=== PATIENT | female | born 1945 | race Caucasian/White ===

== ENCOUNTER → 2018-11-18 | Outpatient (CLI) | payer OTHER ==
[~2018-11-18] MED LIST: Flomax0.4 MG PO; HYDCHL12.5; IBUP400 PO; Keflex500 MG PO; LISI20 PO; MECL25 PO; METF500 PO; METO25ER PO; Norco 5-325 Ta1 EACH PO; OXYACE5T PO; SPIR25; TRAN4; VENL75; Zofran Odt4 MG SL; [UNRECOGNIZED DRUG - CODE]
== END | disposition home or self-care (01) ==
LOC: LAB SHORT 13:40 → PLD 13:40
DX: D22.62 Melanocytic nevi of left upper limb, including shoulder (principal); D03.72 Melanoma in situ of left lower limb, including hip
CPT/HCPCS: 88305

== ENCOUNTER 2018-11-25 06:52 | Day surgery (SDC) | payer OTHER ==
[~2018-11-25] VITALS: Ht 160 cm; Wt 75.8 kg
--- NOTE | 2018-11-25 08:30 | NUR ---
11/25/18 0830 Abeba Linn INJECTED 10ML OF NS AND 3 DROPS OF INDIGO CARMINE FOR CECAL POLYPECTOMY.
== END 2018-11-25 08:58 | disposition home or self-care (01) ==
LOC: ORSCSDS 06:52
PROVIDERS: Student in an Organized Health Care Education/Training Program
PROC: 0DBH8ZX Excision of Cecum, Via Natural or Artificial Opening Endoscopic, Diagnostic (ICD-10-PCS; principal; 2018-11-25 08:00)
DX: Z12.11 Encounter for screening for malignant neoplasm of colon (principal); D12.0 Benign neoplasm of cecum; K64.8 Other hemorrhoids; I10 Essential (primary) hypertension; E11.9 Type 2 diabetes mellitus without complications; Z79.899 Other long term (current) drug therapy
CPT/HCPCS: 82947; 88305; J0330; J1980; J2405; J7120

== ENCOUNTER → 2019-09-02 | Outpatient (CLI) | payer OTHER ==
[2019-09-03 13:57] LABS: Candida species (DNA Probe) Negative (NEGATIVE); G. vaginalis (DNA Probe) Positive (NEGATIVE); T. vaginalis (DNA Probe) Negative (NEGATIVE)
== END | disposition home or self-care (01) ==
LOC: LAB SHORT 18:14 → LAB 18:14
PROVIDERS: Internal Medicine
DX: N95.2 Postmenopausal atrophic vaginitis (principal); N76.0 Acute vaginitis
CPT/HCPCS: 87480; 87510; 87660

== ENCOUNTER → 2020-09-10 | Outpatient (CLI) | payer OTHER ==
[2020-09-11 14:41] LABS: Candida species (DNA Probe) Negative (NEGATIVE); G. vaginalis (DNA Probe) Positive (NEGATIVE); T. vaginalis (DNA Probe) Negative (NEGATIVE)
== END ==
LOC: LAB 18:16 → LAB SHORT 18:16
PROVIDERS: Internal Medicine
DX: N76.1 Subacute and chronic vaginitis (principal)
CPT/HCPCS: 87070; 87205; 87480; 87510; 87529; 87660

== ENCOUNTER → 2021-08-19 | Outpatient (CLI) | payer OTHER ==
[2021-08-19 12:06] LABS: Source, Urine Clean Catch
[2021-08-19 13:14] LABS: Appearance, Urine Clear (Clear); Bilirubin, Urine Neg (Neg); Blood, Urine 5+ (Neg); Color, Urine Yellow (P-Yellow); Glucose Qualitative, Urine Neg (Neg); Ketones, Urine Neg (Neg); Leukocyte Esterase, Urine Neg (Neg); Nitrite, Urine Neg (Neg); Protein, Urine 1+ (Neg); Specific Gravity, Urine 1.015 (1.003-1.022); Urobilinogen, Urine NORM (Normal)
[2021-08-19 13:41] LABS: Bacteria Rare /hpf; Red Blood Cells, Urine TNTC /hpf (0-2); White Blood Cells, Urine 0-2 /hpf (0-5)
[2021-08-19 13:43] LABS: Squamous Epithelial Cells Rare /hpf (Few)
== END | disposition home or self-care (01) ==
LOC: LAB 12:04 → LAB SHORT 12:04
PROVIDERS: Internal Medicine
DX: R30.0 Dysuria (principal)
CPT/HCPCS: 81001

== ENCOUNTER → 2021-09-04 | Outpatient (CLI) | payer OTHER | END | disposition home or self-care (01) | LOC: LAB SHORT 16:24 → LAB 16:24 | DX: N30.01 Acute cystitis with hematuria (principal) | CPT/HCPCS: 87086 ==

== ENCOUNTER 2024-08-19 08:53 | Day surgery (SDC) | payer OTHER ==
[2024-08-19] VITALS (10 sets, daily range): BP systolic 106–192; BP diastolic 50–83
[~2024-08-19] VITALS: Ht 162.6 cm; Wt 76.4 kg
[~2024-08-19 08:53] MED LIST changes: +DULO60 PO; +FARXIGA5 MG PO
[2024-08-19] MEDS ORDERED: Chlorhexidine Mouth Care 15 ML UDC MT SCH (09:10)
[2024-08-19] MEDS ORDERED: Clindamycin 900mg in D5W 50ML 50 ML IV SCH (09:10)
[2024-08-19] MEDS ORDERED: Acetaminophen 500 MG Tab PO SCH ×2 (09:10→16:00)
[2024-08-19] MEDS ORDERED: Ropivacaine 0.5% HCl/Pf 123.125 MG,EPINEPHrine HCL 0.25 MG,Ketorolac Tromethamine 15 MG... INFIL SCH (09:10)
[2024-08-19] MEDS ORDERED: OxyCODONE HCL 10 MG TABCR PO SCH (09:10)
[2024-08-19] MEDS ORDERED: Lactated Ringer's 1,000 ML IV SCH ×2 (09:10→10:35)
[2024-08-19] MEDS ORDERED: Tranexamic Acid 100 ML IV SCH (09:14)
[2024-08-19] MEDS ORDERED: Bupivacaine 0.75%/Dext 8.25% 2 ML Amp IT ONE (09:31)
[2024-08-19] MEDS ORDERED: propofoL 50 ML IV ONE (09:31)
[2024-08-19] MEDS ORDERED: Midazolam HCl 1MG / ML 2ML Vial ONE (09:36)
[2024-08-19] MEDS ORDERED: FentaNYL Citrate 50 MCG/ML 2 ML Injection ONE (09:37)
[2024-08-19] MEDS ORDERED: Phenylephrine HCl 100 MCG/ML-NS 10MLSYR (1MG/10ML) ONE (10:05)
[2024-08-19] MEDS ORDERED: Dexamethasone Sod Phos 10 MG/ML 1ML VIAL ONE (10:05)
[2024-08-19] MEDS ORDERED: Ondansetron HCl 2 MG / ML 2ML Vial ONE (10:05)
[2024-08-19] MEDS ORDERED: OxyCODONE HCL 5 MG TAB PO PRN ×2 (10:30)
[2024-08-19] MEDS ORDERED: Ondansetron HCl 2 MG / ML 2ML Vial IV PRN (10:35)
[2024-08-19] MEDS ORDERED: Magnesium Hydroxide Conc 10 ML UDC PO PRN (10:35)
[2024-08-19] MEDS ORDERED: Metoclopramide HCl 5MG / ML 2ML Vial IV PRN (10:35)
[2024-08-19] MEDS ORDERED: DiphenhydrAMINE HCL 25 MG Cap PO PRN (10:35)
[2024-08-19] MEDS ORDERED: Promethazine HCl 25 MG Tab PO PRN (10:35)
[2024-08-19] MEDS ORDERED: HYDROmorphone HCl/Pf 1MG SYR IV PRN (10:40)
[2024-08-19] MEDS ORDERED: Bisacodyl 10 MG Supp PR PRN (10:40)
[2024-08-19] MEDS ORDERED: FLU VACC TS2024-25(6MOS UP)/PF 45 MCG/0.5 ML SYRINGE IM SCH (10:40)
[2024-08-19] MEDS ORDERED: Lidocaine HCl 2% 20 ML MDV ONE (11:13)
[2024-08-19] MEDS ORDERED: ASPI81CH PO (16:47)
--- NOTE | 2024-08-19 17:35 | NUR ---
DISCHARGE PT HAS WORKED w/ THERAPY. PAIN WELL CONTROLLED. EATING, DRINKING, & VOIDING WELL. NATALYA & KELLIE DODSON SENT w/ PT. ESCORTED OUT VIA W/C.
[2024-08-19] MEDS ORDERED: Ketorolac Tromethamine 15mg Vial IV SCH (18:00)
[2024-08-19] MEDS ORDERED: MetFORMIN HCl 500 mg PO SCH (18:00)
[2024-08-19] MEDS ORDERED: DULoxetine HCL 60 MG Capsule DR PO SCH (18:00)
[2024-08-19] MEDS ORDERED: Docusate Sodium 100 MG Cap PO SCH (21:00)
[2024-08-20] MEDS ORDERED: DAPAGLIFLOZIN 5 MG PO SCH (09:00)
[2024-08-20] MEDS ORDERED: Aspirin 81 MG Chew PO SCH (09:00)
== END 2024-08-19 17:34 | disposition home or self-care (01) ==
LOC: ORSCMMR 08:53 → ORD 10:00 → ORSCMMR 10:00 → ORD 11:00 → SURS 11:56 → ORSCMMR 17:34
PROVIDERS: Orthopaedic Surgery
PROC: 0SRD0JA Replacement of Left Knee Joint with Synthetic Substitute, Uncemented, Open Approach (ICD-10-PCS; principal; 2024-08-19 09:15)
PROC: 8E0Y0CZ Robotic Assisted Procedure of Lower Extremity, Open Approach (ICD-10-PCS; principal; 2024-08-19 09:15)
DX: M17.12 Unilateral primary osteoarthritis, left knee (principal); I10 Essential (primary) hypertension; E11.9 Type 2 diabetes mellitus without complications; Z79.84 Long term (current) use of oral hypoglycemic drugs; F32.A Depression, unspecified; Z79.899 Other long term (current) drug therapy
CPT/HCPCS: 73560-LT; 82947; 97110; 97116; 97162; A9270; C1713; C1776; J0171; J0735; J1100; J1885; J2250; J2371; J2405; J2704; J2795; J3010; J7120

== ENCOUNTER → 2024-09-17 | Outpatient (CLI) | payer OTHER ==
[~2024-09-17] MED LIST changes: +ASPI81CH PO
[2024-09-17 11:44] LABS: Source, Urine Clean Catch
[2024-09-17 13:10] LABS: Appearance, Urine Clear (Clear); Blood, Urine Neg (Neg); Glucose Qualitative, Urine 3+ (Neg); Ketones, Urine Neg (Neg); Leukocyte Esterase, Urine Neg (Neg); Nitrite, Urine Pos (Neg); Protein, Urine 1+ (Neg); Specific Gravity, Urine 1.015 (1.003-1.022); Urobilinogen, Urine 2+ (Normal)
[2024-09-17 13:21] LABS: Bilirubin, Urine 2+ (Neg); Color, Urine Orange (P-Yellow)
[2024-09-17 13:24] LABS: Bacteria Few /hpf; Red Blood Cells, Urine 0-2 /hpf (0-2); Squamous Epithelial Cells Few /hpf (Few)
== END ==
LOC: LAB SHORT 11:42 → LAB 11:42
PROVIDERS: Internal Medicine
DX: R30.0 Dysuria (principal)
CPT/HCPCS: 81001; 87077; 87086; 87186